=== PATIENT | female | born 1995 | race Caucasian/White ===

== ENCOUNTER 2024-09-23 11:15 | Outpatient (CLI) | payer BC ==
[~2024-09-23] VITALS: Ht 167.6 cm; Wt 121.1 kg
[2024-09-23 11:49] VITALS: BP 138/107; PULSE 100; TEMP 98.2
[2024-09-23] MEDS ORDERED: CARDIZEM120 MG PO (11:50)
[2024-09-23] MEDS ORDERED: SPRINTEC 35 MCG1 TAB PO (11:51)
[2024-09-23] MEDS ORDERED: ZOLOFT 50MG50 MG PO (11:51)
[2024-09-23] MEDS ORDERED: TOPROL XL 25MG25 MG PO (11:51)
[2024-09-23 14:15] VITALS: BP 137/88; PULSE 94
[2024-09-23 14:30] VITALS: BP 119/94; PULSE 98
[2024-09-23 14:45] VITALS: BP 133/92; PULSE 97
[2024-09-23 15:00] VITALS: BP 130/88; PULSE 101
--- NOTE | 2024-09-23 15:19 | NUR ---
PT TOLERATED RECOVERY PERIOD WELL. VS REMAINED WITHIN THE PT'S NORMAL LIMITS. PT VERBALIZED UNDERSTANDING OF DISCHARGE INSTRUCTIONS. PT FREE FROM ACUTE CONCERNS AND COMPLAINTS. PT AMBULATED INDEPENDENTLY TO MAIN LOBBY UPON DISCHARGE.
== END 2024-09-23 15:20 | disposition home or self-care (01) ==
LOC: COL.CAR 11:15
DX: R55 Syncope and collapse (principal)